=== PATIENT | female | born 1945 | race Caucasian/White ===

== ENCOUNTER 2016-06-05 08:55 | Emergency (ER) | payer OTHER ==
[~2016-06-05] VITALS: Ht 170.2 cm; Wt 82.6 kg
[2016-06-05 09:43] LABS: EOSINOPHIL (%) 3.5 % (0-5); EOSINOPHIL COUNT 0.2 K/uL (0-0.3); HEMATOCRIT 41.1 % (36.0-46.0); IMMATURE GRANULOCYTE (%) 0.3 % (0.0-0.7); IMMATURE GRANULOCYTE COUNT 0.2 K/uL; LYMPHOCYTE COUNT 1.4 K/uL (1.0-2.8); MCHC 33.8 G/DL (30.0-36.0); MCV 91.7 FL (83-99); MEAN PLAT.VOLUME 10.2 uM^3 (9.5-12.4); MONOCYTE (%) 10.8 % (3-12); MONOCYTE COUNT 0.7 K/uL (0-0.8); NEUTROPHIL COUNT 3.9 K/uL (1.8-6.4); PLATELET COUNT 279 K/uL (156-360); RBC DIS.WIDTH-CV 13.9 % (11.8-14.6); RBC DIS.WIDTH-SD 45.8 % (39-53); RED BLOOD COUNT 4.48 M/uL (3.80-5.20); WHITE BLOOD COUNT 6.3 K/uL (4.1-10.2)
[2016-06-05 09:52] LABS: CHLORIDE 109 mEq/L (99-109); POTASSIUM 4.7 mEq/L (3.7-5.4); SODIUM 141 mEq/L (136-147)
[2016-06-05 09:53] LABS: GLUCOSE 107 mg/dL (70-99)
[2016-06-05 09:55] LABS: ANION GAP 8 MEQ/L (2-14)
[2016-06-05 09:57] LABS: GFR ESTIMATE (CALCULATED) > 59 mL/min/
[2016-06-05 09:58] LABS: UREA NITROGEN (BUN) 20 mg/dL (9-23)
[2016-06-05] MEDS ORDERED: TYLENOL WITH C1 EACH PO (11:54)
[2016-06-05 12:16] VITALS: BP 130/98
== END 2016-06-05 12:17 | disposition home or self-care (01) ==
LOC: EME → EDBD 08:55 → EME 08:55
PROVIDERS: Emergency Medicine
DX: S20.229A Contusion of unspecified back wall of thorax, initial encounter (principal); V99.XXXA Unspecified transport accident, initial encounter
CPT/HCPCS: 70450; 71260; 72125; 72129; 72132; 74177; 80048; 85025; 93005; 99281; 99285; J2270; J7030